=== PATIENT | female | born 1990 | race Caucasian/White ===

== ENCOUNTER 2017-10-27 04:22 | Observation (INO) ==
--- NOTE | 2017-10-26 23:45 | OB/GYN History & Physical ---
Date of Encounter: 10/27/17 Time of Encounter: 23:45 Assessment and Plan (1) with 39 completed weeks gestation Current visit: Yes Status: Acute Patient is 39+1 presenting with contractions and loss of fluids No complications with this Positive movement. No vaginal bleeding or other concerns at this time (2) Spontaneous onset of labor Current visit: Yes Status: Acute Patient states contractions started at 21:30 this evening Every 7-10 minutes Positive loss of fluid, nitrazine positive /-1 on arrival History of Present Illness Chief complaint: Evaluation of Labor;Loss of fluid HPI: Ms. Soriano is a 27 year old female at 39+1 gestational age with history of asthma and cyst on breast at 10 years of age presents to L&D for contractions that started at 21:30 this evening and her water broke. Patient sees Dr. Gill. Patient reports positive movement. Denies headache, vision changes, abdominal pain, vaginal bleeding or any other concerns at this time. Varicella and rubella immune, HIV negative, HepB nonreactive, and RPR nonreactive. Blood type is B+ and patient is GBS negative. Past Med Surg Social Fam HX - Past Medical History Medical history: asthma - Past Surgical History Surgical History: breast surgery (lumpectomy) - Social History Smoking Status: Never smoker Alcohol use: none Drug use: none - Family History Mother Living Status: Still Living Hx Family Cardiac Disorders: Yes (HTN) Obstetrical History - Pregnancies : 3 Para: 1 Term: 1 : 0 Ab's: 1 Livin Medications and Allergies Ferrous Sulfate 325 mg PO DAILY 10/26/17 [History] Vit/Iron Fumarate/FA [ Tablet] 1 each PO DAILY 10/26/17 [ History] 3 Allergy/AdvReac Type Severity Reaction Status Date / Time No Known Allergies Allergy Verified 10/26/17 23:45 Review of System OB All systems PM: reviewed and no additional remarkable complaints except as stated Exam - Constitutional Constitutional: well developed, well nourished, no acute distress, average body habitus - HEENT HEENT: EOMI, Normocephaly, Mucus Membranes Moist - Neck Neck exam: normal inspection - Lungs Respiratory exam: CTAB - Cardiovascular Cardiovascular exam: RRR, +S1, +S2 - Breasts Breast: bilateral: normal - Abdomen Abdomen: Present: bowel sounds normal, gravid, non tender - Extremities Extremities exam: normal inspection - Vagina Vagina: Present: normal moisture - Cervix Dilation: 6 Effacement: 90 Station: -1 - Uterus Uterus exam: Present: normal size, normal contour - Anus/Rectum Anus/Rectum: Present: normal perianal skin Results Result Diagrams: 10/27/17 00:05 All other labs normal.
[2017-10-27 00:14] LABS: Basophils % 0.2 %; Eosinophils % 0.5 %; Hematocrit 33.8 % (35.3-44.9); Hemoglobin 11.4 g/dL (11.5-15.4); Immature Granulocytes % 0.6 % (0-4); Lymphocytes % 23.5 %; Mean Corpuscular HGB Conc 33.7 g/dL (31.6-35.5); Mean Corpuscular Hemoglobin 28.7 pg (28.0-33.3); Mean Corpuscular Volume 85.1 fL (83.0-100.0); Mean Platelet Volume 11.4 fL (9.4-12.4); Monocytes % 6.8 %; Platelet Count 216 K/mcL (140-400); Red Blood Count 3.97 M/mcL (3.82-4.97); Red Cell Distribution Width 13.2 % (11.5-14.5); Segmented Neutrophils % 68.4 %
[2017-10-27 00:15] LABS: Eosinophils # 0.1 K/mcL (0.0-0.6); Lymphocytes # 2.6 K/mcL (0.6-4.6); Monocytes # 0.7 K/mcL (0.0-1.3); Neutrophils # 7.5 K/mcL (1.6-8.9)
--- NOTE | 2017-10-27 01:30 | Anesthesia Evaluation PreOp ---
Date of Encounter: 10/27/17 Time of Encounter: 12:49 - Past History Planned Operation: labor epidural Cardiac History: Denies any Significant Hx Pulmonary History: Asthma [employer]IST History: Denies Any Significant HX Other Medical History: Other (anemia) Anesthesia History: No Prior Anesthetic Complications, Past Anesthesia (breast lumpectomy, wisdom teeth.) : Yes Alcohol Use: none Drug use: none Medications and Allergies Ferrous Sulfate 325 mg PO DAILY 10/26/17 [History] Vit/Iron Fumarate/FA [ Tablet] 1 each PO DAILY 10/26/17 [ History] 3 Allergy/AdvReac Type Severity Reaction Status Date / Time No Known Allergies Allergy Verified 10/26/17 23:45 - Meds/Allergy Pre-op Review Medications Reviewed: Yes Allergies Reviewed: Yes Beta Blockers on Current Med List: No Anesthesia Results - Labs 10/27/17 00:05 Anesthesia Exam VSS and FHTs stable Height: 5'7" Weight: 67 kg NPO (# of Hours): >5 Pain Scale: 10 Pain Scale Used: Numeric (1 - 10) - HEENT Pupil (Motor): Pupils equal, EOMI Mallampati: II Teeth: Normal Oral Opening: Greater than 3 - [employer]IST LOC: Oriented [employer]IST Motor: Normal RUE, Normal LUE, Normal RLE, Normal LLE, Normal Face [employer] Sensory: Normal: RUE, LUE, RLE, LLE, Face - Cardiac Rhythm: Regular - Pulmonary Breath Sounds: bilateral Clear Respiratory Effort: Symmetrical Anesthesia Assess/Plan ASA Score: 2 Modified [place] Scale for Level of Consciousness: Cooperative, oriented, and tranquil Anesthetic Plan: Regional Autologous Blood: No Monitoring Plan: Standard Monitors
[2017-10-27 01:33] LABS: Amphetamine Screen,Urine Negative ng/mL (Cutoff=1000); Barbiturate Screen,Urine Negative ng/mL (Cutoff=200); Benzodiazepines Screen,Urine Negative ng/mL (Cutoff=200); Cannabinoid Screen,Urine Negative ng/mL (Cutoff = 50); Cocaine Screen,Urine Negative ng/mL (Cutoff= 300); Opiate Screen,Urine Negative ng/mL (Cutoff=300); Phencyclidine Screen,Urine Negative ng/mL (Cutoff=25)
--- NOTE | 2017-10-27 01:34 | Anesthesia Procedures ---
Date of Encounter: 10/27/17 Time of Encounter: 01:00 Procedures: Anesthesia - Epidural/Spinal Patient ID/Chart reviewed: Yes Patient examined: Yes OB Eval: Gestational age: 39 OB Eval: : 2 OB Eval: Hx Para: 1 OB Eval: Dilated at (cm): 6 OB Eval: Contractions: Non-stressed pattern Consent Obtained: Yes Supplemental Oxygen: None/Room Air Site Prep: Aseptic Technique, Sterile prep and drape, Povidone-Iodine 1% Patient position: upright Local Anesthetic: Lidocaine 1% Amount of Local Anesthetic used: 3 Touhy Needle Gauge: 18 Touhy Needle Depth (cm): 4 Catheter Depth at Skin (cm): 15 Test Dose (1.5% Lido + Epi): Volume given (mls): 3 Test Dose Result: Negative Loading Dose: 0.25% Marcaine (mls): 8 Loading Dose: Fentanyl (mcg): 100 Loading Dose Administered: Thru Catheter Infusion Med: 0.125% Bupivacaine w/ 2 mcg/ml Fentanyl Infusion Rate (mls/hr): [address]: Tegaderm, Tape Interspace Used: L3-L4 Loss of Resistance (YULIANA): Yes Blood: No CSF: No Paresthesia: No Vitals + FHT's: 3 Vital Signs Time 1250 0100 0115 0120 BP 132/67 121/63 119/51 123/58 Pulse 94 78 67 72 FHTs 130 130 130 130
--- NOTE | 2017-10-27 01:50 | OB/GYN Procedure Note ---
Delivery - Delivery Date: 10/27/17 Provider: Juanita Hunter (Dr. Castro PGY1) Intrapartum events: precipitous labor- <3hr Delivery induction: none Delivery monitor: external FHT, external uterine Anesthesia: epidural Estimated Blood Loss: 50 - (s) Infant A Infant Delivery Date: 10/27/17 Infant Delivery Time: 01:33 Presentation: vertex Position: BETTY Route of delivery: Gender: Female Viability: Viable Pounds: 7 Ounces: 2 Weight Gram: 3220 kg at 1 minute: 9 at 5 mins: 9 Shoulder Dystocia: not encountered Specimens collected: cord blood Placenta: spontaneous Cord: 3 umbilical vessels, nuchal reduced - Repair Episiotomy: none Laceration Description: None - Complications Delivery complications: none Delivery comments: Pt presented in active labor and progressed rapidly to complete dilation. She pushed effectively to over intact perineum for viable female weighing 7lbs 2oz with apgars 9 at one minute and 9 at five minutes. After pulsations ceased the cord was clamped and cut and the placenta delivered spontaneous and intact. No repair was needed and EBL was 50ml. - Disposition Mom disposition: stable in LDR disposition: stable in LDR
[~2017-10-27 04:22] MED LIST: *HR* FentaNYL (PF) 100 MCG/2 ML VIAL EP ONE; *HR* FentaNYL (PF) 100 MCG/2 ML VIAL ONE; *HR* Nalbuphine 20 MG/ML AMPUL IVP PRN; Acetaminophen 325 MG TABLET PO PRN; Bupivacaine-MPF 0.25% 10 ML VIAL EP ONE; Bupivacaine-MPF 0.25% 10 ML VIAL ONE; Epidural Premix (fent/bupiv) 110 ML EP ONE; Epidural Premix (fent/bupiv) 110 ML EP SCH; Famotidine 20 MG/2 ML VIAL IVP PRN; Measles/Mumps/Rubella Vacc 0.5 ML VIAL SQ PRN; Metoclopramide 10 MG/2 ML VIAL IVP PRN; Naloxone 0.4 MG/ML INJ IVP PRN; Ondansetron 4 MG/2 ML VIAL IVP PRN; Oxytocin 20 units/ LR 1000 mL 20 UNIT/1,000 ML BAG IVC ONE; Oxytocin 20 units/ LR 1000 mL 20 UNIT/1,000 ML BAG IVC SCH; Ringers Solution, Lactated 1,000 ML IVC SCH
[2017-10-27 07:07] LABS: Basophils % 0.1 %; Hematocrit 34.2 % (35.3-44.9); Hemoglobin 11.3 g/dL (11.5-15.4); Immature Granulocytes % 0.6 % (0-4); Lymphocytes % 12.7 %; Mean Corpuscular Hemoglobin 28.3 pg (28.0-33.3); Mean Corpuscular Volume 85.7 fL (83.0-100.0); Mean Platelet Volume 11.6 fL (9.4-12.4); Monocytes # 0.8 K/mcL (0.0-1.3); Neutrophils # 12.6 K/mcL (1.6-8.9); Platelet Count 192 K/mcL (140-400); Red Blood Count 3.99 M/mcL (3.82-4.97); Red Cell Distribution Width 13.3 % (11.5-14.5); Segmented Neutrophils % 81.6 %
[2017-10-27] MEDS ORDERED: Prenatal Vit/FA 1 EACH TABLET PO SCH (09:00)
[2017-10-27] MEDS: Ibuprofen 600 MG TABLET PO PRN ×2 (14:07→21:06)
[2017-10-27] MEDS ORDERED: Loratadine/Pseudophed (12 HR) 1 EACH TABLET PO PRN (14:45)
--- NOTE | 2017-10-27 22:31 | OB/GYN Progress Note ---
Date of Encounter: 10/27/17 Time of Encounter: 22:28 Subjective - Subjective Principal diagnosis: Vaginal Delivery Interval history: S/P vaginal delivery patient states she would like to be discharged home when baby is 24 hours. Pain is well controlled Lochia is light and without clots VSS Tolerating regular diet; Voiding and passing flatus without difficulty Bottle feeding is going well Discharge home after baby is 24 hours old. Objective - Latest Vital Signs Latest vital signs: Vital Signs Temp Pulse Resp BP Pulse Ox 10/27/17 15:53 98.3 F 64 16 123/75 100 10/27/17 07:40 97.9 F 65 16 105/66 98 10/27/17 06:10 98.1 F 60 16 106/61 98 10/27/17 04:55 97.9 F 68 16 123/75 97 10/27/17 04:00 98.1 F 72 16 116/71 97 Intake and Output 10/27/17 10/27/17 10/27/17 07:59 15:59 23:59 Intake Total 400 / 400 550 / 550 Output Total 2100 / 2100 400 / 400 Balance -1700 / -1700 550 / 550 -400 / -400 Intake: Oral 400 / 400 550 / 550 Output: Urine 2100 / 2100 400 / 400 Other: # Voids 1 - Labs Labs: Laboratory Results - last 24 hr 10/27/17 10/27/17 10/27/17 00:05 01:19 06:46 WBC 10.9 15.5 H RBC 3.97 3.99 Hgb 11.4 L 11.3 L Hct 33.8 L 34.2 L MCV 85.1 85.7 MCH 28.7 28.3 MCHC 33.7 33.0 RDW 13.2 13.3 Plt Count 216 192 MPV 11.4 11.6 Immature Gran % 0.6 0.6 Seg Neutrophils % 68.4 81.6 Lymphocytes % 23.5 12.7 Monocytes % 6.8 5.0 Eosinophils % 0.5 0.0 Basophils % 0.2 0.1 Neutrophils # 7.5 12.6 H Lymphocytes # 2.6 2.0 Monocytes # 0.7 0.8 Eosinophils # 0.1 0.0 Basophils # 0.0 0.0 Urine Opiates Screen Negative Ur Barbiturates Screen Negative Ur Phencyclidine Scrn Negative Ur Amphetamines Screen Negative U Benzodiazepines Scrn Negative Urine Cocaine Screen Negative U Marijuana (THC) Screen Negative
--- NOTE | 2017-10-27 22:35 | Discharge Summary ---
Date of Encounter: 10/27/17 Time of Encounter: 22:33 - Discharge Diagnosis (1) Vaginal delivery Priority: Primary Status: Acute Comments: S/P vaginal delivery patient states she would like to be discharged home when baby is 24 hours. Pain is well controlled Lochia is light and without clots VSS Tolerating regular diet; Voiding and passing flatus without difficulty Bottle feeding is going well Discharge home after baby is 24 hours old. - Discharge Medications Prescriptions: Ibuprofen [Motrin] 600 mg PO Q6HR PRN #30 tablet PRN Reason: Cramping Docusate [Colace] 100 mg PO BID PRN #20 capsule PRN Reason: Constipation Home Medications: Acetaminophen [Tylenol] 650 mg PO Q6HR PRN tablet 10/27/17 [Rx] Docusate [Colace] 100 mg PO BID PRN #20 capsule 10/27/17 [Rx] Ibuprofen [Motrin] 600 mg PO Q6HR PRN #30 tablet 10/27/17 [Rx] Loratadine/Pseudophed (12 HR) [Claritin D (12HR)] 1 each PO BID PRN tablet 05/08 [Rx] Vit/FA 1 each PO DAILY tablet 10/27/17 [Rx] Allergies/Adverse Reactions: 3 Allergy/AdvReac Type Severity Reaction Status Date / Time No Known Allergies Allergy Verified 10/26/17 23:45 Data Procedures and tests throughout hospitalization: Laboratory Tests 10/27/17 10/27/17 10/27/17 00:05 01:19 06:46 WBC 10.9 15.5 H RBC 3.97 3.99 Hgb 11.4 L 11.3 L Hct 33.8 L 34.2 L MCV 85.1 85.7 MCH 28.7 28.3 MCHC 33.7 33.0 RDW 13.2 13.3 Plt Count 216 192 MPV 11.4 11.6 Immature Gran % 0.6 0.6 Seg Neutrophils % 68.4 81.6 Lymphocytes % 23.5 12.7 Monocytes % 6.8 5.0 Eosinophils % 0.5 0.0 Basophils % 0.2 0.1 Neutrophils # 7.5 12.6 H Lymphocytes # 2.6 2.0 Monocytes # 0.7 0.8 Eosinophils # 0.1 0.0 Basophils # 0.0 0.0 Urine Opiates Screen Negative Ur Barbiturates Screen Negative Ur Phencyclidine Scrn Negative Ur Amphetamines Screen Negative U Benzodiazepines Scrn Negative Urine Cocaine Screen Negative U Marijuana (THC) Screen Negative Labs on day of discharge: Labs from last 24 hours 10/27/17 10/27/17 10/27/17 06:46 01:19 00:05 WBC 15.5 H 10.9 RBC 3.99 3.97 Hgb 11.3 L 11.4 L Hct 34.2 L 33.8 L MCV 85.7 85.1 MCH 28.3 28.7 MCHC 33.0 33.7 RDW 13.3 13.2 Plt Count 192 216 MPV 11.6 11.4 Immature Gran % 0.6 0.6 Seg Neutrophils % 81.6 68.4 Lymphocytes % 12.7 23.5 Monocytes % 5.0 6.8 Eosinophils % 0.0 0.5 Basophils % 0.1 0.2 Neutrophils # 12.6 H 7.5 Lymphocytes # 2.0 2.6 Monocytes # 0.8 0.7 Eosinophils # 0.0 0.1 Basophils # 0.0 0.0 Urine Opiates Screen Negative Ur Barbiturates Screen Negative Ur Phencyclidine Scrn Negative Ur Amphetamines Screen Negative U Benzodiazepines Scrn Negative Urine Cocaine Screen Negative U Marijuana (THC) Screen Negative Date of admission: 10/26/17 23:36 Primary care physician: PCP NONE Discharging clinician: Beth Frederick Anticipated date of discharge: 10/27/17 - Patient Status Disposition: Home, Self-Care Condition: Good Functional capacity at discharge: independent ambulation Overall status at discharge: patient is progressing back to baseline - Discharge Instructions Follow Up With: NONE,PCP [Primary Care Provider] - Juanita Hunter CNM [Non-Partnered Physician] - - Diet and Activity Activity: increase activity as tolerated Diet: regular diet Hospital Course Reason for admission: active labor, IUP at term Delivery: Episiotomy: none Laceration: none Other procedures: none complications: none Discharge diagnosis: IUP at term delivered [place] baby: female Time Attestation: Total time spent providing and/or coordinating discharge services: Time Spent: Less than 30 minutes Exam - Constitutional Vitals: Temp Pulse Resp BP Pulse Ox 98.3 F 64 16 123/75 100 10/27/17 15:53 10/27/17 15:53 12/06/17 15:53 10/27/17 15:53 10/27/17 15:53 General appearance IM: cooperative, A&O X 3, pleasant - Respiratory Respiratory exam: Present: CTAB - Cardiovascular Cardiovascular exam IM: Present: RRR, +S1, +S2 - GI/Abdominal GI/Abdominal exam IM: normal bowel sounds, soft - Rectal Rectal exam: deferred - Uterine Tone: Firm Uterus Position: 2 Fingers Below Umbilicus, Midline - Extremities Exam Extremities exam IM: Present: normal capillary refill, normal inspection, radial pulses palpable and symmetrical - Neurological Exam Neurological exam: alert, oriented X3
[2017-10-27 23:13] VITALS: BP 123/77
== END 2017-10-28 04:25 | disposition home or self-care (01) ==
LOC: 1NENULAB → 1NENUOBS 04:22
PROVIDERS: ADMIT Student in an Organized Health Care Education/Training Program; ATTEND Student in an Organized Health Care Education/Training Program

== ENCOUNTER 2022-06-21 05:43 | Inpatient (IN) ==
[~2022-06-21 05:43] MED LIST changes: -*HR* FentaNYL (PF) 100 MCG/2 ML VIAL EP ONE; +*HR* FentaNYL (PF) 100 MCG/2 ML VIAL IVP PRN; -*HR* FentaNYL (PF) 100 MCG/2 ML VIAL ONE; +*HR* Nalbuphine 10 MG/ML AMPUL IV PRN; -*HR* Nalbuphine 20 MG/ML AMPUL IVP PRN; -Acetaminophen 325 MG TABLET PO PRN; +Azithromycin 500 MG in 0.9 % Sodium Chloride 250 ML IVPB PRN; -Bupivacaine-MPF 0.25% 10 ML VIAL EP ONE; -Bupivacaine-MPF 0.25% 10 ML VIAL ONE; -Epidural Premix (fent/bupiv) 110 ML EP ONE; -Epidural Premix (fent/bupiv) 110 ML EP SCH; -Measles/Mumps/Rubella Vacc 0.5 ML VIAL SQ PRN; -Ondansetron 4 MG/2 ML VIAL IVP PRN; -Oxytocin 20 units/ LR 1000 mL 20 UNIT/1,000 ML BAG IVC ONE; -Oxytocin 20 units/ LR 1000 mL 20 UNIT/1,000 ML BAG IVC SCH; -Ringers Solution, Lactated 1,000 ML IVC SCH
[2022-06-21] MEDS ORDERED: Ringers Solution, Lactated 1,000 ML IVC SCH (05:45)
[2022-06-21 05:59] LABS: Basophils % 0.2 %; Eosinophils # 0.2 K/mcL (0.0-0.6); Eosinophils % 1.8 %; Hematocrit 37.2 % (35.3-44.9); Hemoglobin 12.1 g/dL (11.5-15.4); Immature Granulocytes % 0.3 % (0-4); Lymphocytes # 1.9 K/mcL (0.6-4.6); Lymphocytes % 18.9 %; Mean Corpuscular HGB Conc 32.5 g/dL (31.6-35.5); Mean Corpuscular Hemoglobin 28.3 pg (28.0-33.3); Mean Corpuscular Volume 86.9 fL (83.0-100.0); Mean Platelet Volume 11.1 fL (9.4-12.4); Monocytes # 0.6 K/mcL (0.0-1.3); Neutrophils # 7.3 K/mcL (1.6-8.9); Platelet Count 148 K/mcL (140-400); Red Blood Count 4.28 M/mcL (3.82-4.97); Red Cell Distribution Width 14.4 % (11.5-14.5); Segmented Neutrophils % 72.8 %
[2022-06-21] MEDS ORDERED: Ondansetron 4 MG/2 ML VIAL IVP PRN (06:00)
[2022-06-21] MEDS ORDERED: Epidural Premix (fent/bupiv) 110 ML EP ONE (06:09)
[2022-06-21] MEDS ORDERED: EPHEDrine 50 MG/ML VIAL IVP PRN (06:42)
[2022-06-21] MEDS ORDERED: Epidural Premix (fent/bupiv) 110 ML EP SCH (06:45)
[2022-06-21] MEDS ORDERED: Oxytocin 30 UNIT/503 ML BAG IVC ONE (07:29)
[2022-06-21 08:41] LABS: Amphetamine Screen,Urine Negative ng/mL (Cutoff=1000); Barbiturate Screen,Urine Negative ng/mL (Cutoff=200); Benzodiazepines Screen,Urine Negative ng/mL (Cutoff=200); Cannabinoid Screen,Urine Negative ng/mL (Cutoff = 50); Cocaine Screen,Urine Negative ng/mL (Cutoff= 300); Opiate Screen,Urine Negative ng/mL (Cutoff=300); Phencyclidine Screen,Urine Negative ng/mL (Cutoff=25)
[2022-06-21] MEDS ORDERED: Ibuprofen 600 MG TABLET PO ONE (08:41)
[2022-06-21] MEDS ORDERED: Prenatal Vit/FA 1 EACH TABLET PO SCH (13:28)
[2022-06-21] MEDS ORDERED: Ondansetron ODT 4 MG TAB.RAPDIS SL PRN (13:28)
[2022-06-21] MEDS ORDERED: Oxytocin 30 UNIT/503 ML BAG IVC SCH (13:28)
[2022-06-21] MEDS ORDERED: Benzocaine/Menthol 56 GM AEROSOL SPRAY TP PRN (13:28)
[2022-06-21] MEDS ORDERED: Lanolin 7 G OINT...G. TP PRN (13:28)
[2022-06-21] MEDS: Acetaminophen 325 MG TABLET PO SCH ×2 (18:28→23:33)
[2022-06-21] MEDS: Ibuprofen 600 MG TABLET PO SCH ×2 (18:29→23:33)
[2022-06-21 20:47] VITALS: O2SAT 98
[2022-06-22 07:06] VITALS: BP 100/64; PULSE 51; TEMP 97.9
[2022-06-22] MEDS: Ibuprofen 600 MG TABLET PO SCH (08:44)
[2022-06-22] MEDS: Acetaminophen 325 MG TABLET PO SCH (08:45)
== END 2022-06-22 12:30 | disposition home or self-care (01) | DRG 560 ==
LOC: 1NENULAB → 1NENUOBS 10:51
PROVIDERS: ADMIT Advanced Practice Midwife; ATTEND Advanced Practice Midwife